=== PATIENT | female | born 1935 | race Caucasian/White ===

== ENCOUNTER 2017-05-09 08:30 | Emergency (ER) | payer MEDICARE ==
[~2017-05-09] VITALS: Ht 152.4 cm; Wt 57.0 kg
[~2017-05-09 08:30] MED LIST: BENA20TA2 PO; HYDR12.522 PO; POTA10TA21 PO; POTA20TA19 PO
[2017-05-09] MEDS ORDERED: LORazepam 2 mg/ml vial IV ONE (09:40)
[2017-05-09] MEDS ORDERED: normal saline 1000ML IV soln IVB ONE (09:40)
[2017-05-09] MEDS ORDERED: ketorolac trometh. 30mg/ml inj. IV ONE (09:40)
[2017-05-09] MEDS ORDERED: ondansetron/PF 4mg/2ml inj IV ONE (09:40)
[2017-05-09 09:44] LABS: CLARITY,URINE Cloudy (Clear); COLOR,URINE Yellow (Yellow); GLUCOSE, URINE Negative (Neg); KETONES,URINE Negative (Neg); LEUKOCYTE ESTERASE ,URINE Small (Neg); NITRITES, URINE Negative (Neg); OCCULT BLOOD,URINE Negative (Neg); PH,URINE 8.5 (4.8-8.0); PROTEIN,URINE Negative (Neg)
[2017-05-09 09:45] LABS: UA COLLECTION TYPE CLN CATCH MIDSTREAM
[2017-05-09 09:55] LABS: BASOPHILS % (AUTO) 0.2 % (0-1); EOSINOPHILS # (AUTO) 0.1 X10'3 (0-0.9); EOSINOPHILS % (AUTO) 0.6 % (0-6); HEMATOCRIT 44.1 % (35.0-45.0); HEMOGLOBIN 15.2 g/dl (12.0-16.0); LYMPHOCYTES # (AUTO) 0.8 X10'3 (1.1-4.8); LYMPHOCYTES % (AUTO) 7.8 % (21-51); MEAN CORPUSCULAR HEMOGLOBIN 29.6 PG (27.0-31.0); MEAN CORPUSCULAR HGB CONC 34.6 % (33.0-36.5); MEAN CORPUSCULAR VOLUME 85.4 FL (78-98); MEAN PLATELET VOLUME 7.6 FL (7.4-10.4); MONOCYTES # (AUTO) 0.5 X10'3 (0-0.9); MONOCYTES % (AUTO) 4.4 % (2-12); NEUTROPHILS # (AUTO) 9.4 X10'3 (1.8-7.7); PLATELET COUNT 193 X10'3 (140-440); RED BLOOD COUNT 5.16 X10'6 (4.20-5.60); RED CELL DISTRIBUTION WIDTH 13.6 % (11.5-14.5); WHITE BLOOD COUNT 10.8 X10'3 (4.5-11.0)
[2017-05-09 10:00] LABS: MUCUS STRANDS FEW /LPF (Neg); SQUAMOUS EPITHELIAL CELL,UR MODERATE /LPF (FEW)
[2017-05-09 10:01] LABS: AMORPHOUS PHOSPHATES 2+; TRANSITIONAL EPI CELLS,URINE FEW /HPF; WBC,URINE 0-4 /HPF (0-4)
[2017-05-09 10:02] LABS: BACTERIA,URINE 1+ /HPF (Neg)
[2017-05-09 10:09] LABS: ALANINE AMINOTRANSFERASE 24 U/L (12-78); ALBUMIN 3.9 G/DL (3.4-5.0); ALBUMIN/GLOBULIN RATIO 1.1 (1.1-1.5); ALKALINE PHOSPHATASE 78 IU/L (46-116); ANION GAP 11 (8-16); ASPARTATE AMINO TRANSFERASE 18 U/L (10-37); BILIRUBIN,TOTAL 0.6 MG/DL (0.1-1.0); BLOOD UREA NITROGEN 27 MG/DL (7-18); BUN/CREATININE RATIO 24.8 (6.6-38.0); CALCIUM 10.9 MG/DL (8.5-10.1); CHLORIDE 106 MMOL/L (99-107); CREATININE 1.09 MG/DL (0.40-0.90); GLUCOSE 126 MG/DL (70-104); POTASSIUM 3.5 MMOL/L (3.5-5.1); SODIUM 144 MMOL/L (135-145); TOTAL CARBON DIOXIDE 27.2 MMOL/L (24-32); TOTAL PROTEIN 7.4 G/DL (6.4-8.2); eGFR 48 ML/MIN
[2017-05-09 11:31] LABS: BANDS% (MANUAL) 2 % (0-10); LYMPHOCYTES % (MANUAL) 6 % (21-51); MONOCYTES % (MANUAL) 6 % (2-12); NEUTROPHILS % (MANUAL) 86 % (42-75); TOTAL CELLS COUNTED 100
[2017-05-09 11:32] LABS: PLATELET ESTIMATE NORMAL
[2017-05-09] MEDS ORDERED: ONDA4TAB12 PO (11:58)
[2017-05-09] MEDS ORDERED: TAMS0.4C32 PO (11:58)
[2017-05-09] MEDS ORDERED: HYDR-3965 PO (11:58)
[2017-05-09] MEDS ORDERED: CEPH500C5 PO (12:07)
[2017-05-09 12:24] VITALS: BP 143/64
== END 2017-05-09 12:20 | disposition home or self-care (01) ==
LOC: ER 08:30
DX: N13.2 Hydronephrosis with renal and ureteral calculous obstruction (principal); I10 Essential (primary) hypertension; Z90.49 Acquired absence of other specified parts of digestive tract; Z90.710 Acquired absence of both cervix and uterus; Z98.890 Other specified postprocedural states; Z88.5 Allergy status to narcotic agent; Z79.899 Other long term (current) drug therapy
CPT/HCPCS: 36415; 74176; 80053; 81001; 85025; 87077; 87088; 87186; 96374; 96375; 99285; J1885; J2060; J2405; J7030

== ENCOUNTER 2017-05-10 12:34 | Inpatient (IN) | payer MEDICARE ==
[2017-05-10] VITALS (13 sets, daily range): BP systolic 129–152; BP diastolic 54–94
[~2017-05-10] VITALS: Ht 152.4 cm; Wt 63.6 kg
[~2017-05-10 12:34] MED LIST changes: +CEPH500C5 PO; +HYDR-3965 PO; +ONDA4TAB12 PO; +TAMS0.4C32 PO
[2017-05-10] MEDS ORDERED: HYDROcodone/acetaminophen 10/325mg tab PO ONE (13:25)
[2017-05-10] MEDS ORDERED: ondansetron/PF 4mg/2ml inj IV ONE (13:25)
[2017-05-10] MEDS ORDERED: ketorolac tromethamine 15mg/ml inj. IV ONE (13:25)
[2017-05-10 13:41] LABS: BASOPHILS % (AUTO) 0.2 % (0-1); EOSINOPHILS % (AUTO) 0.3 % (0-6); HEMATOCRIT 39.2 % (35.0-45.0); HEMOGLOBIN 13.5 g/dl (12.0-16.0); LYMPHOCYTES # (AUTO) 0.6 X10'3 (1.1-4.8); LYMPHOCYTES % (AUTO) 7.3 % (21-51); MEAN CORPUSCULAR HEMOGLOBIN 29.7 PG (27.0-31.0); MEAN CORPUSCULAR HGB CONC 34.4 % (33.0-36.5); MEAN CORPUSCULAR VOLUME 86.3 FL (78-98); MEAN PLATELET VOLUME 7.6 FL (7.4-10.4); MONOCYTES # (AUTO) 0.6 X10'3 (0-0.9); MONOCYTES % (AUTO) 7.9 % (2-12); NEUTROPHILS # (AUTO) 6.8 X10'3 (1.8-7.7); NEUTROPHILS % (AUTO) 84.3 % (42-75); PLATELET COUNT 156 X10'3 (140-440); RED BLOOD COUNT 4.54 X10'6 (4.20-5.60); RED CELL DISTRIBUTION WIDTH 14.1 % (11.5-14.5)
[2017-05-10 13:56] LABS: ALANINE AMINOTRANSFERASE 23 U/L (12-78); ALBUMIN 3.3 G/DL (3.4-5.0); ALBUMIN/GLOBULIN RATIO 1.1 (1.1-1.5); ALKALINE PHOSPHATASE 65 IU/L (46-116); ANION GAP 10 (8-16); ASPARTATE AMINO TRANSFERASE 14 U/L (10-37); BILIRUBIN,TOTAL 0.6 MG/DL (0.1-1.0); BLOOD UREA NITROGEN 29 MG/DL (7-18); BUN/CREATININE RATIO 17.7 (6.6-38.0); CALCIUM 10.2 MG/DL (8.5-10.1); CHLORIDE 107 MMOL/L (99-107); CREATININE 1.64 MG/DL (0.40-0.90); GLUCOSE 113 MG/DL (70-104); LIPASE 109 U/L (73-393); POTASSIUM 3.7 MMOL/L (3.5-5.1); SODIUM 144 MMOL/L (135-145); TOTAL CARBON DIOXIDE 27.1 MMOL/L (24-32); TOTAL PROTEIN 6.4 G/DL (6.4-8.2); eGFR 30 ML/MIN
[2017-05-10 13:59] LABS: PARTIAL THROMBOPLASTIN TIME 25 SECONDS (22-32); PROTHROMBIN TIME 10.3 SECONDS (9.0-12.0)
[2017-05-10 14:35] LABS: CLARITY,URINE SLIGHTLY CLOUDY (Clear); COLOR,URINE YELLOW (Yellow); GLUCOSE, URINE NEGATIVE (Neg); KETONES,URINE 40 mg/dl (Neg); LEUKOCYTE ESTERASE ,URINE TRACE (Neg); NITRITES, URINE NEGATIVE (Neg); OCCULT BLOOD,URINE NEGATIVE (Neg); PH,URINE 6.5 (4.8-8.0); PROTEIN,URINE NEGATIVE (Neg); UROBILINOGEN,URINE 0.2 E.U/dL (0.2-1.0)
[2017-05-10 14:41] LABS: UA COLLECTION TYPE CLN CATCH MIDSTREAM
[2017-05-10 14:42] LABS: HYALINE CASTS 0-3 /LPF (NEGATIVE); MUCUS STRANDS FEW /LPF (Neg); SQUAMOUS EPITHELIAL CELL,UR MODERATE /LPF (FEW)
[2017-05-10 14:43] LABS: RBC,URINE 0-2 /HPF (0-2)
[2017-05-10 14:44] LABS: AMORPHOUS PHOSPHATES 2+; BACTERIA,URINE 1+ /HPF (Neg)
[2017-05-10] MEDS ORDERED: magnesium 2GM in 50ml NS 50 ML IV PRN (16:05)
[2017-05-10] MEDS ORDERED: potassium Cl 40MEQ/NS 500ml 500 ML IV PRN ×2 (16:05)
[2017-05-10] MEDS ORDERED: mag hydrox/Alum hydrox/simeth 30ml oral suspension PO PRN (16:05)
[2017-05-10] MEDS ORDERED: magnesium 4gm in 100ml NS 100 ML IV PRN (16:05)
[2017-05-10] MEDS ORDERED: magnesium Cl slow-release 64mg tablet PO PRN (16:05)
[2017-05-10] MEDS ORDERED: potassium Cl 20 mEq SR tablet PO PRN ×2 (16:05)
[2017-05-10] MEDS ORDERED: HYDROcodone/acetaminophen 10/325mg tab PO PRN (16:05)
[2017-05-10] MEDS ORDERED: MORPHINE 2MG in 2ml NS syringe IV PRN (16:05)
[2017-05-10] MEDS ORDERED: acetaminophen 325mg tablet PO PRN (16:05)
[2017-05-10] MEDS ORDERED: HYDROcodone/acetaminophen 5mg/325mg tablet PO PRN (16:05)
[2017-05-10] MEDS ORDERED: magnesium hydroxide 30ml (MOM) UD suspension PO PRN (16:05)
[2017-05-10] MEDS ORDERED: ondansetron/PF 4mg/2ml inj IV PRN ×2 (16:05→19:15)
[2017-05-10] MEDS ORDERED: CefTRIAXone/D5W-Rocephin 1gm 50 ML IV ONE (16:20)
[2017-05-10] MEDS: normal saline 1000ml 1,000 ML IV SCH (16:59)
[2017-05-10] MEDS ORDERED: iohexol 300 MG/1 ML 50ml polymer ONE (18:22)
[2017-05-10] MEDS ORDERED: ondansetron/PF 4mg/2ml inj ONE (18:36)
[2017-05-10] MEDS ORDERED: sevoflurane 250ml liquid IH ONE (18:36)
[2017-05-10] MEDS ORDERED: fentaNYL/PF 50MCG/1 ML 2ML syringe ONE (18:38)
[2017-05-10] MEDS ORDERED: propofol inj 20 ML IV ONE (18:59)
[2017-05-10] MEDS ORDERED: ceFAZolin 1000mg inj ONE (18:59)
[2017-05-10] MEDS ORDERED: rocuronium 10mg/ml inj IV ONE (18:59)
[2017-05-10] MEDS ORDERED: LIDOcaine 1%/PF (10mg/ml) 5ml vial ONE (18:59)
[2017-05-10] MEDS ORDERED: neostigmine methylsulfate 1 MG/ML 10ml vial ONE (19:00)
[2017-05-10] MEDS ORDERED: glycopyrrolate 0.2mg/ml inj ONE (19:00)
[2017-05-10] MEDS ORDERED: ringers solution, lacted 1,000 ML IV ONE (19:14)
[2017-05-10] MEDS ORDERED: hydrALAZINE 20mg/ml inj. IV PRN (19:15)
[2017-05-10] MEDS ORDERED: meperidine/PF 50mg/ml syringe IV ONE (19:15)
[2017-05-10] MEDS ORDERED: labetalol 20mg/4ml (5mg/ml) syringe IV PRN (19:15)
[2017-05-10] MEDS ORDERED: meperidine/PF 50mg/ml syringe IV PRN ×2 (19:15)
[2017-05-10] MEDS ORDERED: labetalol 5mg/ml 20ml inj. IV PRN (19:22)
[2017-05-10] MEDS ORDERED: temazepam 15mg capsule PO PRN (21:00)
[2017-05-11] MEDS: normal saline 1000ml 1,000 ML IV SCH ×2 (02:01→12:01)
[2017-05-11 03:51] VITALS: BP 134/81
[2017-05-11 06:00] VITALS: BP 149/72
[2017-05-11 06:03] LABS: BASOPHILS % (AUTO) 0.4 % (0-1); EOSINOPHILS # (AUTO) 0.1 X10'3 (0-0.9); EOSINOPHILS % (AUTO) 1.9 % (0-6); HEMATOCRIT 33.8 % (35.0-45.0); HEMOGLOBIN 11.7 g/dl (12.0-16.0); LYMPHOCYTES # (AUTO) 0.8 X10'3 (1.1-4.8); LYMPHOCYTES % (AUTO) 14.7 % (21-51); MEAN CORPUSCULAR HEMOGLOBIN 29.6 PG (27.0-31.0); MEAN CORPUSCULAR HGB CONC 34.6 % (33.0-36.5); MEAN CORPUSCULAR VOLUME 85.5 FL (78-98); MONOCYTES # (AUTO) 0.5 X10'3 (0-0.9); MONOCYTES % (AUTO) 8.9 % (2-12); NEUTROPHILS # (AUTO) 3.9 X10'3 (1.8-7.7); NEUTROPHILS % (AUTO) 74.1 % (42-75); PLATELET COUNT 133 X10'3 (140-440); RED BLOOD COUNT 3.95 X10'6 (4.20-5.60); RED CELL DISTRIBUTION WIDTH 13.7 % (11.5-14.5); WHITE BLOOD COUNT 5.3 X10'3 (4.5-11.0)
[2017-05-11 06:15] LABS: ALBUMIN 2.8 G/DL (3.4-5.0); ANION GAP 10 (8-16); BLOOD UREA NITROGEN 23 MG/DL (7-18); BUN/CREATININE RATIO 21.5 (6.6-38.0); CALCIUM 9.3 MG/DL (8.5-10.1); CHLORIDE 110 MMOL/L (99-107); CREATININE 1.07 MG/DL (0.40-0.90); GLUCOSE 89 MG/DL (70-104); MAGNESIUM 1.7 MG/DL (1.5-2.4); POTASSIUM 3.5 MMOL/L (3.5-5.1); SODIUM 146 MMOL/L (135-145); TOTAL CARBON DIOXIDE 26.5 MMOL/L (24-32); eGFR 49 ML/MIN
[2017-05-11] MEDS ORDERED: tamsulosin 0.4mg capsule PO SCH (08:00)
[2017-05-11] MEDS ORDERED: K and/or MAG REPLACEMENT MC SCH (08:00)
[2017-05-11] MEDS ORDERED: CefTRIAXone/D5W-Rocephin 1gm 50 ML IV SCH (08:00)
[2017-05-11 10:00] VITALS: BP 144/71
[2017-05-11] MEDS ORDERED: LEVO500T2 PO (15:29)
[2017-05-11] MEDS ORDERED: lactobacillus rhamnosus 10,000 MMU CELLS/CAPSULE PO SCH (20:00)
== END 2017-05-11 18:15 | disposition home or self-care (01) | DRG 693 ==
LOC: ER 12:34 → ED HOLD 16:01 → CMPBEDREQ 20:02 → ORTHO 4S 20:18
PROVIDERS: ADMIT Internal Medicine; ATTEND Internal Medicine
PROC: BT1F1ZZ Fluoroscopy of Left Kidney, Ureter and Bladder using Low Osmolar Contrast (ICD-10-PCS; 2017-05-10)
PROC: 0T778DZ Dilation of Left Ureter with Intraluminal Device, Via Natural or Artificial Opening Endoscopic (ICD-10-PCS; principal; 2017-05-10 18:36)
DX: N13.2 Hydronephrosis with renal and ureteral calculous obstruction (principal); E43 Unspecified severe protein-calorie malnutrition; N17.9 Acute kidney failure, unspecified; I10 Essential (primary) hypertension; K57.90 Diverticulosis of intestine, part unspecified, without perforation or abscess without bleeding; N99.3 Prolapse of vaginal vault after hysterectomy; R32 Unspecified urinary incontinence; Z88.5 Allergy status to narcotic agent; Z90.49 Acquired absence of other specified parts of digestive tract; Z79.899 Other long term (current) drug therapy; Z87.442 Personal history of urinary calculi; Z82.49 Family history of ischemic heart disease and other diseases of the circulatory system; Z68.27 Body mass index [BMI] 27.0-27.9, adult
CPT/HCPCS: 36415; 76001; 80048; 80053; 81001; 83690; 83735; 85025; 85610; 85730; 87070; 87077; 87088; 87186; 96374; 96375; 99285; A4402; C1726; C1758; C1769; C2617; J0690; J0696; J1885; J2001; J2405; J2704; J2710; J3010; J3490; J7030; J7120; Q9967

== ENCOUNTER 2017-09-02 00:17 | Emergency (ER) | payer MEDICARE ==
[~2017-09-02] VITALS: Ht 154.9 cm; Wt 56.8 kg
[~2017-09-02 00:17] MED LIST changes: -HYDR-3965 PO
[2017-09-02 00:22] VITALS: BP 123/63
== END 2017-09-02 01:16 | disposition home or self-care (01) ==
LOC: ER 00:17
DX: S93.602A Unspecified sprain of left foot, initial encounter (principal); I10 Essential (primary) hypertension; Z87.442 Personal history of urinary calculi; Z90.49 Acquired absence of other specified parts of digestive tract; Z90.710 Acquired absence of both cervix and uterus; Z98.890 Other specified postprocedural states; Z88.5 Allergy status to narcotic agent; Z79.899 Other long term (current) drug therapy; W01.0XXA Fall on same level from slipping, tripping and stumbling without subsequent striking against object, initial encounter; Y93.89 Activity, other specified; Y92.89 Other specified places as the place of occurrence of the external cause; Y99.8 Other external cause status
CPT/HCPCS: 73630; 99284

== ENCOUNTER 2018-06-18 21:17 | Emergency (ER) | payer MEDICARE ==
[~2018-06-18] VITALS: Ht 162.6 cm; Wt 64.8 kg
[~2018-06-18 21:17] MED LIST changes: -BENA20TA2 PO; +BENA20TA82 PO; -CEPH500C5 PO
[2018-06-18 21:42] VITALS: BP 167/74
== END 2018-06-18 23:27 | disposition home or self-care (01) ==
LOC: ER 21:17
DX: R68.84 Jaw pain (principal); R51 Headache; I10 Essential (primary) hypertension; Z90.49 Acquired absence of other specified parts of digestive tract; Z90.710 Acquired absence of both cervix and uterus; Z98.890 Other specified postprocedural states; Z88.5 Allergy status to narcotic agent; Z79.899 Other long term (current) drug therapy
CPT/HCPCS: 99281

== ENCOUNTER 2018-10-21 08:36 | Emergency (ER) | payer MEDICARE ==
[~2018-10-21] VITALS: Ht 152.4 cm; Wt 61.4 kg
[2018-10-21 08:54] VITALS: BP 152/77
== END 2018-10-21 11:02 | disposition home or self-care (01) ==
LOC: ER 08:37
DX: M25.531 Pain in right wrist (principal); M79.641 Pain in right hand; M19.041 Primary osteoarthritis, right hand; I11.0 Hypertensive heart disease with heart failure; I50.9 Heart failure, unspecified; Z88.6 Allergy status to analgesic agent; Z79.899 Other long term (current) drug therapy; Z87.19 Personal history of other diseases of the digestive system; Z87.442 Personal history of urinary calculi; Z90.49 Acquired absence of other specified parts of digestive tract; Z90.710 Acquired absence of both cervix and uterus; Z98.890 Other specified postprocedural states; X58.XXXA Exposure to other specified factors, initial encounter; Y93.89 Activity, other specified; Y92.89 Other specified places as the place of occurrence of the external cause; Y99.8 Other external cause status
CPT/HCPCS: 29125; 73110; 73130; 99283

== ENCOUNTER 2018-11-29 17:40 | Inpatient (IN) | payer MEDICARE ==
[~2018-11-29] VITALS: Ht 152.4 cm; Wt 60.9 kg
[2018-11-29 19:00] LABS: BASOPHILS % (AUTO) 0.2 % (0-1); EOSINOPHILS % (AUTO) 0.3 % (0-6); HEMATOCRIT 42.8 % (35.0-45.0); HEMOGLOBIN 14.5 g/dl (12.0-16.0); LYMPHOCYTES # (AUTO) 0.7 X10'3 (1.1-4.8); MEAN CORPUSCULAR HEMOGLOBIN 29.1 PG (27.0-31.0); MEAN CORPUSCULAR HGB CONC 33.9 g/dL (33.0-36.5); MEAN PLATELET VOLUME 8.1 FL (7.4-10.4); MONOCYTES % (AUTO) 7.3 % (2-12); NEUTROPHILS # (AUTO) 11.5 X10'3 (1.8-7.7); NEUTROPHILS % (AUTO) 87.2 % (42-75); PLATELET COUNT 193 X10'3 (140-440); RED BLOOD COUNT 4.97 X10'6 (4.20-5.60); WHITE BLOOD COUNT 13.1 X10'3 (4.5-11.0)
[2018-11-29 19:13] LABS: ALANINE AMINOTRANSFERASE 25 U/L (12-78); ALBUMIN 3.5 G/DL (3.4-5.0); ALBUMIN/GLOBULIN RATIO 0.9 (1.1-1.5); ALKALINE PHOSPHATASE 83 IU/L (46-116); ANION GAP 12 (8-16); ASPARTATE AMINO TRANSFERASE 19 U/L (10-37); BILIRUBIN,TOTAL 0.6 MG/DL (0.1-1.0); BLOOD UREA NITROGEN 20 MG/DL (7-18); BUN/CREATININE RATIO 25.6 (6.6-38.0); CALCIUM 9.9 MG/DL (8.5-10.1); CHLORIDE 100 MMOL/L (99-107); CREATININE 0.78 MG/DL (0.40-0.90); GLUCOSE 137 MG/DL (70-104); POTASSIUM 3.4 MMOL/L (3.5-5.1); SODIUM 138 MMOL/L (135-145); TOTAL PROTEIN 7.6 G/DL (6.4-8.2); eGFR 70 ML/MIN
[2018-11-29] MEDS ORDERED: normal saline 1000ML IV soln IV ONE (19:30)
[2018-11-29] MEDS ORDERED: CefTRIAXone 2gm/D5W 50ml 50 ML IV ONE (19:30)
[2018-11-29] MEDS ORDERED: benzonatate 100mg capsule PO ONE (19:50)
--- NOTE | 2018-11-29 19:50 | NUR ---
DISCUSSED PATIENT REQUEST FOR COUGH MEDICINE WITH DR GOMEZ, ORDERS RECEIVED
[2018-11-29] MEDS ORDERED: magnesium hydroxide 30ml (MOM) UD suspension PO PRN (20:10)
[2018-11-29] MEDS ORDERED: ondansetron/PF 4mg/2ml inj IV PRN (20:10)
[2018-11-29] MEDS ORDERED: mag hydrox/Alum hydrox/simeth 30ml oral suspension PO PRN (20:10)
[2018-11-29] MEDS ORDERED: acetaminophen 325mg tablet PO PRN (20:10)
[2018-11-29 20:37] LABS: CLARITY,URINE CLEAR (Clear); COLOR,URINE YELLOW (Yellow); GLUCOSE, URINE NEGATIVE (Neg); KETONES,URINE >=80 mg/dl (Neg); LEUKOCYTE ESTERASE ,URINE NEGATIVE (Neg); NITRITES, URINE NEGATIVE (Neg); OCCULT BLOOD,URINE NEGATIVE (Neg); PH,URINE 7.5 (4.8-8.0); PROTEIN,URINE NEGATIVE (Neg); UA COLLECTION TYPE CLN CATCH MIDSTREAM; UROBILINOGEN,URINE 0.2 E.U/dL (0.2-1.0)
[2018-11-29] MEDS: potassium Cl 20 mEq SR tablet PO SCH (20:37)
[2018-11-29] MEDS: normal saline 1000ml 1,000 ML IV SCH ×2 (20:37→23:39)
--- NOTE | 2018-11-29 21:11 | NUR ---
ATTEMPTED TO CALL REPORT TO SURGICAL UNIT, WAS TOLD THAT THE RECEIVING NURSE IS "IN THE MIDDLE OF PATIENT CARE" AND WOULD CALL BACK
[2018-11-29 21:55] VITALS: BP 162/66
[2018-11-30] VITALS: BP 143/65
[2018-11-30 05:02] LABS: BASOPHILS % (AUTO) 0.3 % (0-1); EOSINOPHILS % (AUTO) 0.1 % (0-6); HEMATOCRIT 37.2 % (35.0-45.0); HEMOGLOBIN 12.5 g/dl (12.0-16.0); LYMPHOCYTES % (AUTO) 8.4 % (21-51); MEAN CORPUSCULAR HEMOGLOBIN 29.1 PG (27.0-31.0); MEAN CORPUSCULAR HGB CONC 33.5 g/dL (33.0-36.5); MEAN CORPUSCULAR VOLUME 86.7 FL (78-98); MEAN PLATELET VOLUME 8.1 FL (7.4-10.4); MONOCYTES # (AUTO) 1.1 X10'3 (0-0.9); MONOCYTES % (AUTO) 9.3 % (2-12); NEUTROPHILS # (AUTO) 9.7 X10'3 (1.8-7.7); NEUTROPHILS % (AUTO) 81.9 % (42-75); PLATELET COUNT 162 X10'3 (140-440); RED BLOOD COUNT 4.29 X10'6 (4.20-5.60); RED CELL DISTRIBUTION WIDTH 13.9 % (11.5-14.5); WHITE BLOOD COUNT 11.8 X10'3 (4.5-11.0)
[2018-11-30 05:26] LABS: ALANINE AMINOTRANSFERASE 20 U/L (12-78); ALBUMIN 2.8 G/DL (3.4-5.0); ALBUMIN/GLOBULIN RATIO 0.8 (1.1-1.5); ALKALINE PHOSPHATASE 63 IU/L (46-116); ANION GAP 11 (8-16); ASPARTATE AMINO TRANSFERASE 19 U/L (10-37); BILIRUBIN,TOTAL 0.5 MG/DL (0.1-1.0); BLOOD UREA NITROGEN 11 MG/DL (7-18); BUN/CREATININE RATIO 16.2 (6.6-38.0); CALCIUM 8.6 MG/DL (8.5-10.1); CHLORIDE 105 MMOL/L (99-107); CREATININE 0.68 MG/DL (0.40-0.90); GLUCOSE 107 MG/DL (70-104); POTASSIUM 3.1 MMOL/L (3.5-5.1); SODIUM 140 MMOL/L (135-145); TOTAL CARBON DIOXIDE 23.8 MMOL/L (24-32); TOTAL PROTEIN 6.5 G/DL (6.4-8.2); eGFR 82 ML/MIN
--- NOTE | 2018-11-30 06:44 | NUR ---
gave reprot to Елена LOCKETT pt is awake and alert on Ra, requesting trash can be moved closer to her, call light and items of freq use within reach.
[2018-11-30 07:10] VITALS: BP 131/74
[2018-11-30] MEDS ORDERED: heparin, porcine 5000 units/ml vial SQ SCH (08:00)
[2018-11-30] MEDS ORDERED: lisinopril 20mg tablet PO SCH (08:00)
[2018-11-30] MEDS ORDERED: potassium Cl 20 mEq SR tablet PO SCH (08:00)
[2018-11-30] MEDS: potassium Cl 20 mEq SR tablet PO SCH ×3 (08:53→21:18)
[2018-11-30] MEDS: CefTRIAXone/D5W-Rocephin 1gm 50 ML IV SCH (08:53)
[2018-11-30] MEDS: HYDROchlorothiazide 25mg tablet PO SCH (08:54)
[2018-11-30] MEDS: normal saline 1000ml 1,000 ML IV SCH ×2 (08:55→19:58)
[2018-11-30 11:00] VITALS: BP 121/58
[2018-11-30] MEDS ORDERED: guaiFENesin/DM 10ml UD oral syrup PO PRN (11:40)
[2018-11-30] MEDS ORDERED: guaiFENesin/codeine phos 10ml UD oral syrup PO PRN (11:40)
[2018-11-30] MEDS: azithromycin/NS 500mg/250ml 250 ML IV SCH (13:25)
--- NOTE | 2018-11-30 18:30 | NUR ---
Problems reprioritized. Patient report given, questions answered & plan of care reviewed with CATHRYN BYNUM.
--- NOTE | 2018-11-30 18:40 | NUR ---
Received report from marina LOCKETT pt is awake and alert on RA, eating dinner, in no apparent distress, call light and items of freq use within reach.
[2018-11-30 19:00] VITALS: BP 152/67
[2018-11-30] MEDS: lactobacillus rhamnosus 10,000 MMU CELLS/CAPSULE PO SCH (19:58)
[2018-12-01 00:30] VITALS: BP 124/58
[2018-12-01] MEDS: normal saline 1000ml 1,000 ML IV SCH (05:28)
[2018-12-01 06:19] LABS: BASOPHILS % (AUTO) 0.5 % (0-1); EOSINOPHILS # (AUTO) 0.2 X10'3 (0-0.9); EOSINOPHILS % (AUTO) 3.7 % (0-6); HEMATOCRIT 33.3 % (35.0-45.0); HEMOGLOBIN 11.6 g/dl (12.0-16.0); LYMPHOCYTES # (AUTO) 1.4 X10'3 (1.1-4.8); LYMPHOCYTES % (AUTO) 23.6 % (21-51); MEAN CORPUSCULAR HEMOGLOBIN 29.9 PG (27.0-31.0); MEAN CORPUSCULAR HGB CONC 34.7 g/dL (33.0-36.5); MEAN CORPUSCULAR VOLUME 86.3 FL (78-98); MEAN PLATELET VOLUME 7.7 FL (7.4-10.4); MONOCYTES # (AUTO) 0.6 X10'3 (0-0.9); MONOCYTES % (AUTO) 10.8 % (2-12); NEUTROPHILS # (AUTO) 3.6 X10'3 (1.8-7.7); NEUTROPHILS % (AUTO) 61.4 % (42-75); PLATELET COUNT 150 X10'3 (140-440); RED BLOOD COUNT 3.86 X10'6 (4.20-5.60); WHITE BLOOD COUNT 5.8 X10'3 (4.5-11.0)
[2018-12-01 06:21] LABS: ALANINE AMINOTRANSFERASE 23 U/L (12-78); ALBUMIN 2.4 G/DL (3.4-5.0); ALBUMIN/GLOBULIN RATIO 0.8 (1.1-1.5); ALKALINE PHOSPHATASE 53 IU/L (46-116); ANION GAP 8 (8-16); ASPARTATE AMINO TRANSFERASE 21 U/L (10-37); BILIRUBIN,TOTAL 0.3 MG/DL (0.1-1.0); BLOOD UREA NITROGEN 8 MG/DL (7-18); BUN/CREATININE RATIO 13.6 (6.6-38.0); CHLORIDE 110 MMOL/L (99-107); CREATININE 0.59 MG/DL (0.40-0.90); GLUCOSE 82 MG/DL (70-104); POTASSIUM 3.3 MMOL/L (3.5-5.1); SODIUM 144 MMOL/L (135-145); TOTAL CARBON DIOXIDE 26.3 MMOL/L (24-32); TOTAL PROTEIN 5.6 G/DL (6.4-8.2); eGFR > 90 ML/MIN
--- NOTE | 2018-12-01 06:33 | NUR ---
Gave report to Cherry LOCKETT pt is awake and alert playing on her tablet on RA in no apparent distress, call light and items of freq use within reach.
[2018-12-01] MEDS: HYDROchlorothiazide 25mg tablet PO SCH (07:15)
[2018-12-01] MEDS: CefTRIAXone/D5W-Rocephin 1gm 50 ML IV SCH (07:16)
[2018-12-01] MEDS: potassium Cl 20 mEq SR tablet PO SCH (07:16)
[2018-12-01] MEDS: lactobacillus rhamnosus 10,000 MMU CELLS/CAPSULE PO SCH (07:16)
[2018-12-01 08:00] VITALS: BP 147/53
[2018-12-01] MEDS ORDERED: enoxaparin 40mg/0.4ml syringe SUBCUT SCH (08:00)
[2018-12-01] MEDS: azithromycin/NS 500mg/250ml 250 ML IV SCH (08:19)
[2018-12-01] MEDS ORDERED: lisinopril 20mg tablet PO SCH (08:53)
[2018-12-01] MEDS ORDERED: LEVO750T21 PO (10:16)
[2018-12-01] MEDS ORDERED: guaiFENesin/codeine oral syrup PO (10:16)
[2018-12-01] MEDS ORDERED: ALBU8.5H8 INH (10:16)
[2018-12-01 11:30] VITALS: BP 132/92
--- NOTE | 2018-12-01 14:42 | NUR ---
Pt discharged home with family. Doing well and appropriate for discharge. meds sent to [facility]. Triplicate for Robitussin with codeine given to pt. Pt will f/u as needed with pcp. IV taken out, no tele. All belongings taken from room.
== END 2018-12-01 11:55 | disposition home or self-care (01) | DRG 195 ==
LOC: ER 17:41 → ED HOLD 20:36 → SUR 3N 21:40
PROVIDERS: ADMIT Internal Medicine; ATTEND Internal Medicine
DX: J18.9 Pneumonia, unspecified organism (principal); G47.00 Insomnia, unspecified; I10 Essential (primary) hypertension; M17.11 Unilateral primary osteoarthritis, right knee; M81.0 Age-related osteoporosis without current pathological fracture; Z79.899 Other long term (current) drug therapy; Z87.442 Personal history of urinary calculi; Z90.710 Acquired absence of both cervix and uterus; Z88.5 Allergy status to narcotic agent; Z90.49 Acquired absence of other specified parts of digestive tract; Z82.49 Family history of ischemic heart disease and other diseases of the circulatory system
CPT/HCPCS: 36415; 71046; 80053; 81003; 83605; 84145; 85025; 87040; 87070; 87081; 94667; 94668; 94760; 96365; 99285; G0378; J0456; J0696; J1644; J1650; J7030

== ENCOUNTER 2019-04-06 17:07 | Emergency (ER) | payer MEDICARE ==
[~2019-04-06] VITALS: Ht 154.9 cm; Wt 60.0 kg
[~2019-04-06 17:07] MED LIST changes: +ALBU8.5H8 INH; -ONDA4TAB12 PO; -TAMS0.4C32 PO; +guaiFENesin/codeine oral syrup PO
[2019-04-06] MEDS ORDERED: normal saline 1000ML IV soln IVB ONE (18:20)
[2019-04-06] MEDS ORDERED: CefTRIAXone 2gm/D5W 50ml 50 ML IV ONE (18:20)
[2019-04-06 19:08] LABS: HEMOGLOBIN 14.4 g/dl (12.0-16.0); LYMPHOCYTES # (AUTO) 0.5 X10'3 (1.1-4.8); PLATELET COUNT 147 X10'3 (140-440)
[2019-04-06 19:10] LABS: BASOPHILS % (AUTO) 0.2 % (0-1); EOSINOPHILS % (AUTO) 0.2 % (0-6); LYMPHOCYTES % (AUTO) 5.7 % (21-51); MEAN CORPUSCULAR HEMOGLOBIN 28.8 PG (27.0-31.0); MEAN CORPUSCULAR HGB CONC 34.2 g/dL (33.0-36.5); MEAN CORPUSCULAR VOLUME 84.2 FL (78-98); MEAN PLATELET VOLUME 8.1 FL (7.4-10.4); MONOCYTES # (AUTO) 0.7 X10'3 (0-0.9); MONOCYTES % (AUTO) 8.3 % (2-12); NEUTROPHILS # (AUTO) 7.2 X10'3 (1.8-7.7); NEUTROPHILS % (AUTO) 85.6 % (42-75); RED BLOOD COUNT 4.99 X10'6 (4.20-5.60); RED CELL DISTRIBUTION WIDTH 14.1 % (11.5-14.5); WHITE BLOOD COUNT 8.4 X10'3 (4.5-11.0)
[2019-04-06 19:17] LABS: PARTIAL THROMBOPLASTIN TIME 33 SECONDS (22-32)
[2019-04-06 19:23] LABS: ALANINE AMINOTRANSFERASE 26 U/L (12-78); ALBUMIN 3.6 G/DL (3.4-5.0); ALBUMIN/GLOBULIN RATIO 1.1 (1.1-1.5); ALKALINE PHOSPHATASE 67 IU/L (46-116); ANION GAP 11 (8-16); ASPARTATE AMINO TRANSFERASE 23 U/L (10-37); BILIRUBIN,TOTAL 0.6 MG/DL (0.1-1.0); BLOOD UREA NITROGEN 14 MG/DL (7-18); BUN/CREATININE RATIO 19.2 (6.6-38.0); CALCIUM 9.2 MG/DL (8.5-10.1); CHLORIDE 102 MMOL/L (99-107); CREATININE 0.73 MG/DL (0.40-0.90); GLUCOSE 119 MG/DL (70-104); MAGNESIUM 1.7 MG/DL (1.5-2.4); POTASSIUM 3.5 MMOL/L (3.5-5.1); SODIUM 140 MMOL/L (135-145); TOTAL CARBON DIOXIDE 26.6 MMOL/L (24-32); eGFR 76 ML/MIN
--- NOTE | 2019-04-06 19:40 | NUR ---
PATIENT REQUESTS WATER WHCIH IS PROVIDED.
[2019-04-06] MEDS ORDERED: AZIT250T82 PO (20:14)
[2019-04-06 20:31] VITALS: BP 138/68
== END 2019-04-06 20:32 | disposition home or self-care (01) ==
LOC: ER 17:08
DX: J22 Unspecified acute lower respiratory infection (principal); I10 Essential (primary) hypertension; Z90.49 Acquired absence of other specified parts of digestive tract; Z90.710 Acquired absence of both cervix and uterus; Z98.890 Other specified postprocedural states; Z91.013 Allergy to seafood; Z88.5 Allergy status to narcotic agent; Z79.2 Long term (current) use of antibiotics; Z79.899 Other long term (current) drug therapy
CPT/HCPCS: 36415; 71045; 80053; 83605; 83735; 84145; 85025; 85610; 85730; 87040; 87502; 87503; 93005; 96365; 99284; J0696; J7030

== ENCOUNTER 2019-08-09 10:02 | Emergency (ER) | payer MEDICARE ==
[~2019-08-09] VITALS: Ht 156.2 cm; Wt 61.4 kg
[2019-08-09 10:54] LABS: CLARITY,URINE CLEAR (Clear); COLOR,URINE YELLOW (Yellow); GLUCOSE, URINE NEGATIVE (Neg); KETONES,URINE NEGATIVE (Neg); LEUKOCYTE ESTERASE ,URINE MODERATE (Neg); NITRITES, URINE NEGATIVE (Neg); OCCULT BLOOD,URINE NEGATIVE (Neg); PH,URINE 8.5 (4.8-8.0); PROTEIN,URINE NEGATIVE (Neg); UROBILINOGEN,URINE 0.2 E.U/dL (0.2-1.0)
[2019-08-09] MEDS ORDERED: normal saline 1000ML IV soln IVB ONE (10:55)
[2019-08-09 11:02] LABS: UA COLLECTION TYPE CLN CATCH MIDSTREAM
[2019-08-09 11:03] LABS: BACTERIA,URINE NONE SEEN /HPF (Neg); MUCUS STRANDS FEW /LPF (Neg); RBC,URINE NONE SEEN /HPF (0-2); SQUAMOUS EPITHELIAL CELL,UR FEW /LPF (FEW); WBC,URINE 0-4 /HPF (0-4)
[2019-08-09 11:06] LABS: BASOPHILS % (AUTO) 0.5 % (0-1); EOSINOPHILS # (AUTO) 0.1 X10'3 (0-0.9); EOSINOPHILS % (AUTO) 0.8 % (0-6); HEMOGLOBIN 15.3 g/dl (12.0-16.0); LYMPHOCYTES # (AUTO) 1.1 X10'3 (1.1-4.8); LYMPHOCYTES % (AUTO) 15.8 % (21-51); MEAN CORPUSCULAR HEMOGLOBIN 28.5 PG (27.0-31.0); MEAN CORPUSCULAR HGB CONC 33.3 g/dL (33.0-36.5); MEAN CORPUSCULAR VOLUME 85.8 FL (78-98); MONOCYTES # (AUTO) 0.6 X10'3 (0-0.9); MONOCYTES % (AUTO) 8.7 % (2-12); NEUTROPHILS # (AUTO) 5.3 X10'3 (1.8-7.7); NEUTROPHILS % (AUTO) 74.2 % (42-75); PLATELET COUNT 197 X10'3 (140-440); RED BLOOD COUNT 5.36 X10'6 (4.20-5.60); WHITE BLOOD COUNT 7.2 X10'3 (4.5-11.0)
[2019-08-09 11:17] LABS: ALANINE AMINOTRANSFERASE 22 U/L (12-78); ALBUMIN 3.8 G/DL (3.4-5.0); ALBUMIN/GLOBULIN RATIO 1.1 (1.1-1.5); ALKALINE PHOSPHATASE 90 IU/L (46-116); ANION GAP 11 (8-16); ASPARTATE AMINO TRANSFERASE 21 U/L (10-37); BILIRUBIN,TOTAL 0.6 MG/DL (0.1-1.0); BLOOD UREA NITROGEN 15 MG/DL (7-18); BUN/CREATININE RATIO 18.8 (6.6-38.0); CALCIUM 9.9 MG/DL (8.5-10.1); CHLORIDE 106 MMOL/L (99-107); GLUCOSE 106 MG/DL (70-104); POTASSIUM 3.7 MMOL/L (3.5-5.1); SODIUM 143 MMOL/L (135-145); TOTAL CARBON DIOXIDE 26.5 MMOL/L (24-32); TOTAL PROTEIN 7.2 G/DL (6.4-8.2); eGFR 68 ML/MIN
--- NOTE | 2019-08-09 11:20 | NUR ---
pt back from ct scan will start with n.s fluid as per md orders.
[2019-08-09] MEDS ORDERED: TRAM50TA2 PO (11:43)
[2019-08-09] MEDS ORDERED: traMADol 50MG tablet PO ONE (11:50)
[2019-08-09 12:13] VITALS: BP 164/76
== END 2019-08-09 12:12 | disposition home or self-care (01) ==
LOC: ER 10:02
DX: R10.9 Unspecified abdominal pain (principal); I10 Essential (primary) hypertension; Z87.01 Personal history of pneumonia (recurrent); Z87.442 Personal history of urinary calculi; Z90.49 Acquired absence of other specified parts of digestive tract; Z90.710 Acquired absence of both cervix and uterus; Z98.890 Other specified postprocedural states; Z88.5 Allergy status to narcotic agent; Z91.013 Allergy to seafood; Z79.899 Other long term (current) drug therapy
CPT/HCPCS: 36415; 74176; 80053; 81001; 85025; 87088; 87186; 99284; J7030; 87077

== ENCOUNTER 2020-03-24 11:54 | Emergency (ER) | payer MEDICARE ==
[~2020-03-24] VITALS: Ht 154.9 cm; Wt 60.9 kg
--- NOTE | 2020-03-24 12:20 | NUR ---
TO CT VIA [facility]
[2020-03-24] MEDS ORDERED: LIDOcaine 1% W/epiNEPHrine 1:200,000 10ml vial IJ ONE (12:35)
[2020-03-24] MEDS ORDERED: TETanus/Pertussis (Acell)/Diphther VAC/PF (Tdap-Adult) 0.5ml syringe IMVAC ONE (12:35)
[2020-03-24] MEDS ORDERED: orphenadrine citrate 60mg/2ml inj. IM ONE (14:15)
[2020-03-24] MEDS ORDERED: ketorolac tromethamine 15mg/ml inj. IM ONE (14:15)
[2020-03-24 15:59] VITALS: BP 137/78
[2020-03-24] MEDS ORDERED: CEPH-585 PO (16:59)
== END 2020-03-24 16:06 | disposition home or self-care (01) ==
LOC: ER 11:55
DX: S02.2XXA Fracture of nasal bones, initial encounter for closed fracture (principal); S01.21XA Laceration without foreign body of nose, initial encounter; I10 Essential (primary) hypertension; Z87.01 Personal history of pneumonia (recurrent); Z87.442 Personal history of urinary calculi; Z90.49 Acquired absence of other specified parts of digestive tract; Z90.710 Acquired absence of both cervix and uterus; Z98.890 Other specified postprocedural states; Z88.5 Allergy status to narcotic agent; Z91.013 Allergy to seafood; Z79.899 Other long term (current) drug therapy; W18.30XA Fall on same level, unspecified, initial encounter; Y93.89 Activity, other specified; Y92.89 Other specified places as the place of occurrence of the external cause; Y99.8 Other external cause status
CPT/HCPCS: 12011; 70450; 72125; 73030; 90471; 90715; 96372; 99285; J1885; J2360

== ENCOUNTER 2021-02-28 08:34 | Emergency (ER) | payer MEDICARE ==
[~2021-02-28] VITALS: Ht 152.4 cm; Wt 60.0 kg
[~2021-02-28 08:34] MED LIST changes: +ALBU8.5H17 INH; -ALBU8.5H8 INH; +CEPH-585 PO; +POTA-207 PO; -POTA20TA19 PO
[2021-02-28 08:35] VITALS: BP 141/75
[2021-02-28] MEDS ORDERED: normal saline 1000ML IV soln IVB ONE (08:40)
[2021-02-28 09:00] LABS: BASOPHILS % (AUTO) 0.6 % (0-1); EOSINOPHILS % (AUTO) 0.7 % (0-6); HEMATOCRIT 41.6 % (35.0-45.0); LYMPHOCYTES # (AUTO) 0.3 X10'3 (1.1-4.8); MEAN CORPUSCULAR HEMOGLOBIN 28.3 PG (27.0-31.0); MEAN CORPUSCULAR HGB CONC 33.5 g/dL (33.0-36.5); MEAN CORPUSCULAR VOLUME 84.5 FL (78-98); MONOCYTES # (AUTO) 0.6 X10'3 (0-0.9); MONOCYTES % (AUTO) 15.5 % (2-12); NEUTROPHILS # (AUTO) 2.9 X10'3 (1.8-7.7); NEUTROPHILS % (AUTO) 75.2 % (42-75); PLATELET COUNT 143 X10'3 (140-440); RED BLOOD COUNT 4.93 X10'6 (4.20-5.60); RED CELL DISTRIBUTION WIDTH 14.1 % (11.5-14.5); WHITE BLOOD COUNT 3.9 X10'3 (4.5-11.0)
[2021-02-28 09:04] LABS: CLARITY,URINE CLEAR (Clear); COLOR,URINE YELLOW (Yellow); GLUCOSE, URINE NEGATIVE (Neg); KETONES,URINE 15 mg/dl (Neg); LEUKOCYTE ESTERASE ,URINE SMALL (Neg); NITRITES, URINE NEGATIVE (Neg); OCCULT BLOOD,URINE NEGATIVE (Neg); PROTEIN,URINE NEGATIVE (Neg); UROBILINOGEN,URINE 0.2 E.U/dL (0.2-1.0)
[2021-02-28 09:05] LABS: UA COLLECTION TYPE CLN CATCH MIDSTREAM
[2021-02-28 09:12] LABS: BACTERIA,URINE FEW /HPF (Neg); MUCUS STRANDS FEW /LPF (Neg); RBC,URINE NONE SEEN /HPF (0-2); SQUAMOUS EPITHELIAL CELL,UR FEW /LPF (FEW); WBC,URINE 0-4 /HPF (0-4)
[2021-02-28 09:13] LABS: FINE GRANULAR CAST 0-3 /LPF (NEGATIVE)
[2021-02-28 09:15] LABS: ALANINE AMINOTRANSFERASE 20 U/L (12-78); ALBUMIN 3.5 G/DL (3.4-5.0); ALBUMIN/GLOBULIN RATIO 1.1 (1.1-1.5); ALKALINE PHOSPHATASE 74 IU/L (46-116); ANION GAP 10 (8-16); ASPARTATE AMINO TRANSFERASE 15 U/L (10-37); BILIRUBIN,TOTAL 0.5 MG/DL (0.1-1.0); BLOOD UREA NITROGEN 15 MG/DL (7-18); BUN/CREATININE RATIO 21.1 (6.6-38.0); CHLORIDE 106 MMOL/L (99-107); CREATININE 0.71 MG/DL (0.40-0.90); GLUCOSE 122 MG/DL (70-104); LIPASE 129 U/L (73-393); POTASSIUM 3.3 MMOL/L (3.5-5.1); SODIUM 141 MMOL/L (135-145); TOTAL PROTEIN 6.8 G/DL (6.4-8.2); eGFR 78 ML/MIN
[2021-02-28] MEDS ORDERED: fentaNYL/PF 50MCG/1 ML 2ML syringe IV ONE (09:20)
--- NOTE | 2021-02-28 09:29 | NUR ---
TO CT AT THIS TIME VIA WHEELCHAIR.
[2021-02-28] MEDS ORDERED: AMOX-419 PO (10:38)
== END 2021-02-28 10:51 | disposition home or self-care (01) ==
LOC: ER 08:35
DX: N39.0 Urinary tract infection, site not specified (principal); R10.32 Left lower quadrant pain; I10 Essential (primary) hypertension; Z87.01 Personal history of pneumonia (recurrent); Z87.19 Personal history of other diseases of the digestive system; Z87.442 Personal history of urinary calculi; Z90.49 Acquired absence of other specified parts of digestive tract; Z90.710 Acquired absence of both cervix and uterus; Z88.5 Allergy status to narcotic agent; Z91.013 Allergy to seafood; Z79.2 Long term (current) use of antibiotics; Z79.899 Other long term (current) drug therapy
CPT/HCPCS: 36415; 74176; 80053; 81001; 83690; 85025; 87077; 87088; 87186; 96374; 99284; J3010; J7030